=== PATIENT | male | born 1945 | race Caucasian/White ===

== ENCOUNTER 2025-02-05 04:37 | Inpatient (IN) | payer OTHER, SELFPAY ==
[2025-02-04 18:08] VITALS: BP 142/116
[2025-02-04 18:32] LABS: Hematocrit 24.1 % (39.0-52.0); Hemoglobin 8.1 g/dL (13.0-18.0); Mean Corp Hgb Conc. 33.6 g/dL (33.0-37.0); Mean Corpuscular Volume 80.9 fL (80.0-94.0); Nucleated Red Blood Cells % 0 % (-); Platelet Count 198 10^3/uL (130-400); Red Cell Dist. Width 19.1 % (11.5-14.5)
[2025-02-04 18:55] LABS: ALT (SGPT) 14 U/L (0-50); AST (SGOT) 21 U/L (17-59); Albumin 2.8 g/dl (3.5-5.0); Alkaline Phosphatase 171 U/L (38-126); Blood Urea Nitrogen 68 mg/dl (9-20); Calcium 7.8 mg/dl (8.4-10.2); Carbon Dioxide 23 mmol/L (22-30); Chloride 109 mmol/L (98-107); Glucose 77 mg/dl (70-99); Potassium 5.8 mmol/L (3.5-5.1); Sodium 137 mmol/L (135-145); Total Protein 5.4 g/dl (6.3-8.2); eGFR 29.36
--- NOTE | 2025-02-04 22:04 | ED.GENMED ---
History of Present Illness
General
Chief Complaint: Abnormal Lab Value
Source: patient
Time Seen by Provider: 02/04/25 21:22
History of Present Illness
History of Present Illness:
79-year-old gentleman presents to the emergency room for evaluation of abnormal labs obtained as an outpatient. 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 It was
revised at some point with a total knee replacement. The surgeries were done at [facility]. He had a prolonged hospitalization with multiple antibiotics and was ultimately discharged to a care home facility for rehab. While at the
care home recent facility he developed 'sepsis' and was admitted to [facility] recently. The source of the 'sepsis' was perhaps urine though his is on ultrasound sure that. Patient is currently receiving IV Levaquin. Patient had
surveillance labs obtained today which showed a low hemoglobin. This evidently dropped significantly over the past week. His renal function also worsened over the past week. Patient feels weak but otherwise no specific complaints.
Past History
Past History
ED Past Medical History: HTN and Hypercholesterolemia
ED Past Surgical History: Appendectomy, Orthopedic, Urological and Other (Hernia surgery, cataracts)
Social History
Tobacco: Non-smoker
Phy Exam
Physical Exam
Physical Exam:
General: Awake, Alert, Oriented X3. No acute distress.
Vitals: unremarkable
Head: Atraumatic
Eyes: Pupils equal, EOMI
Throat: Airway intact, no exudates, dry mucosa
Neck: Trachea midline
Lungs: Clear and equal b/l
Heart: Regular rate, no murmurs
Abd: Soft, Nontender, No pulsatile mass
Neuro: Nonfocal
Skin: Warm, dry, no rash
Extremities: pulses equal b/l, wound noted over right patella which is a chronic wound
Course
Orders/Labs/Results
Orders:
Orders
02/04/25 18:15
Type And Crossmatch [Type+Screen] Urgent
Complete Blood Count/With Diff Urgent
Comprehensive Metabolic Panel Urgent
02/04/25 18:33
ABO2 Urgent
BBK Wristband Number:
Associate notified that ABO2 has been ordered: [id number]
Date: 02/04/25
Time: 18:34
Molecular Biologist ID: [id number]
02/04/25 22:00
0.9% Sodium Chloride 1000 ml [Nss] 1,000 ml IV 150 mls/hr
02/04/25 22:04
Electrocardiogram (*1) Urgent
Reason for Study: QTc Monitoring
EKG- Treatment ONCE
Sodium Zirconium Cyclosilicate [Lokelma] 10 gram PO NOW STA
02/04/25 22:49
Admit/Transfer Patient As Directed
Co-Sign Provider:
Level of Care: Observation services
Assign to:: Medical/Surgical
Physician / Group: Jose
Diagnosis: MERI
02/04/25 22:50
Code Status As Directed
Resuscitation Status: Full Code
PRN Pain Medication Management As Directed
May give lesser potent ordered pain med per pt: Yes
preference::
Protocol:: Medication orders for pain may be administered in a
manner that supports deferring to patient preference
when the pt is:
- Requesting an ordered lesser potent pain medication.
Least to most potent pain medications are defined
as: acetaminophen < NSAID < tramadol < opioids
(morphine, oxycodone, hydromorphone).
- Requesting a lesser dose of the same medication IF
ORDERED.
- Requesting a less intrusive route of administration
if both routes are prescribed by the provider (PO <
IV).
02/04/25 23:47
0.9% Sodium Chloride 1000 ml [Nss] 1,000 ml IV BOLUS
02/04/25 23:48
Rolo Hugger As Directed
Patient's goal temperature:: 97 F
Additional Instructions:: Temperature and skin assessment per unit protocol
02/05/25 08:00
0.9% Sodium Chloride [Nss (Preservative Free)] 10 ml IV DAILY
Pantoprazole [Protonix IV] 40 mg IV DAILY
Abnormal Lab Results
02/04/25
18:15
RBC 2.98 L 10^6/uL
(4.70-6.10)
Hgb 8.1 L g/dL
(13.0-18.0)
Hct 24.1 L %
(39.0-52.0)
RDW 19.1 H %
(11.5-14.5)
MPV 11.5 H fL
(7.4-10.4)
Abs Immat Gran (auto) 0.1 H 10^3/uL
(0-0.05)
Absolute Neuts (auto) 6.6 H 10^3/uL
(1.4-6.5)
Absolute Monos (auto) 0.9 H 10^3/uL
(0.1-0.6)
Lymphocytes % 20.4 L %
(20.5-51.1)
Potassium 5.8 H mmol/L
(3.5-5.1)
Chloride 109 H mmol/L
(98-107)
BUN 68 H mg/dl
(9-20)
Creatinine 2.2 H mg/dL
(0.7-1.3)
Calcium 7.8 L mg/dl
(8.4-10.2)
Alkaline Phosphatase 171 H U/L
(38-126)
Total Protein 5.4 L g/dl
(6.3-8.2)
Albumin 2.8 L g/dl
(3.5-5.0)
Crossmatch IS Only See Detail
02/04/25 18:15
02/04/25 18:15
Vital Signs
Initial and Last Documented VS:
Initial Vital Signs
Temp Pulse Resp BP Pulse Ox
97.3 F 66 18 142/116 100
02/04/25 18:08 02/04/25 18:08 02/04/25 18:08 02/04/25 18:08 02/04/25 18:08
Last Documented Vital Signs
Temp Pulse Resp BP Pulse Ox
93.5 F L 54 13 99/55 97
02/05/25 00:44 02/05/25 01:30 02/05/25 01:30 02/05/25 01:00 02/05/25 01:30
MDM/Problems Addressed
Differential Diagnosis Includes:
Upper GI bleed, anemia chronic disease, dehydration
MDM/Problems Addressed:
Patient presents with primarily decrease in hemoglobin as an outpatient. His hemoglobin measured here was quite as low as what it was as an outpatient. However I also noted that his BUN and creatinine is more elevated than baseline. This could
reflect an upper GI bleed causing but the lower hemoglobin and an elevated BUN. Also could represent dehydration which may increase his hemoglobin. Patient's anemia could be related to his prolonged illness with joint infection, chronic
antibiotics etc. He may just have bone marrow suppression. I think the best course of action is to hospitalize the patient for IV hydration. Will see if his BUN/creatinine and potassium improves. His hemoglobin has to be trended to see if he
drifts down and also he can be observed to see if he develops any melena. Dose of Protonix given in case he does not fact have an upper GI bleed.
*Pulse Oximetry
SaO2: 100
Oxygen Mode of Delivery: Room air
Patient hypoxic: no
*EKG
Interpreted by ED Provider?: Yes
Interpretation: abnormal
Heart Rate: 57
Rate: bradycardiac
Rhythm: sinus and PVC's
Fisher: normal axis
Interval: normal interval
QRS Pattern: normal QRS
Ischemia: no ischemia
*Various Exceptionalities Teacher Interpretation
Rate: bradycardiac
Interpretation: abnormal
Rhythm: sinus and PVC's
*Critical Care Note
Total Time (30-74mins, 75-104mins- exclusive of procedures): Not Applicable
ED Attending Note
-
Portions of this chart may have been created with voice recognition software.� Occasional wrong word or��sound alike� substitutions may have occurred due to the inherent limitations of voice recognition software.
Discharge Plan
Departure
Patient Disposition: Admit
Date of Disposition: 02/04/25
Time of Disposition: 22:04
Admit to: Med/Surg
Presentation/result/management discussed w/ accepting MD/DO: Hospitalist
Condition: Fair
Discharge Problem:
ARF (acute renal failure), Anemia, Acute hyperkalemia
Interventions
Interventions:
*Risk Screen - Suicide Last Done: 02/04/25 18:08
*General Assessment Last Done: 02/04/25 22:30
[2025-02-04] MEDS: NSS 1000 IV (22:08)
[2025-02-04] MEDS: LOKELMA 10 GRAM PO (22:08)
--- NOTE | 2025-02-04 22:17 | HPS.HSE ---
Family Physician
-
Family Physician: Blair Pinto, DO
Chief Complaint
-
Anemia
History of Present Illness
This is a 79-year-old male was sent to the emergency department from [facility] [place] facility for hemoglobin of 7.2.
[facility] records indicate that the patient had a fall that was witnessed this morning. He did not strike his head. There was no loss of consciousness. They checked his hemoglobin and it was 7.1 so was sent to the emergency department. His
prior hemoglobin on 02/02 was 7.5 and prior to that it was 8.7 on 725. Patient himself has not seen any melena. He denies any hematochezia. He denies any vomiting. He does have a open right knee wound for which he is on chronic suppressive
antibiotic but he denies any significant oozing or drainage from the site. He has not had any fevers or chills. Denies any medical condition changes. 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
He has been in and out of hospitals over the past few month due to infection of right knee prosthesis with revision and prolonged iv abx ([facility]) and recent admission to [place] for 'sepsis' not sure of source but thought might be
urine. He is not on any anticoagulation
In the emergency department today blood pressure was 1 4100 with a pulse rate of 66 and was satting 90% on room air. He was afebrile with a temp of nine 7.3. His hemoglobin was 8.1 with MCV of 90 with a normal plate count of 198. White count was
9.7. Was found to have a potassium of 5.8. Electrolytes otherwise normal. BUN 66 with a creatinine of 2.2 which is up from his baseline of 5591.6. LFTs were unremarkable with low albumin of 2.8. ECG with sinus bradycardia at 57 with occasional
PVC.
Medical History
Past Medical History
Past Medical History: Reports Renal Failure and Other
Additional Past Medical History:
Periprosthetic fracture around internal prosthetic right hip joint, right artificial knee joint, dysphagia, ambulatory dysfunction, hypertension, hyperlipidemia, CAD without angina, CKD
Past Surgical History: Reports Orthopedic (Right knee prostheses status post revision)
Social History
Tobacco: Non-smoker
Alcohol: None
Drug: None
Personal:
Living: [facility]
Family History
Family History: Not pertinent
Allergies / Home Medications
Allergies reflects when Allergies were last updated in [facility].
Home Medications with original date entered in [facility]
Allergy/Medication List:
Allergies
Allergy/AdvReac Type Severity Reaction Status Date / Time
No Known Allergies Allergy Verified 02/04/25 18:08
Home Medications
aspirin 81 mg tablet,delayed release 81 mg PO DAILY 01/19/18
lisinopril 10 mg tablet (Prinivil) 10 mg PO DAILY 01/19/18
multivitamin 1 ea PO DAILY 01/19/18
Levofloxacin 750mg tablet, 750 mg tablet once daily
Metoprolol succinate 25 mg tablet, 25 mg tablet oral daily
Minocycline 100 mg capsule, 100 mg p.o. daily
Mirtazapine 7.5 mg tablet, 7.5 mg oral daily
Omeprazole 20 mg tablet, 20 mg oral daily
Simvastatin 20 mg tablet, 20 mg oral at bedtime
Review of Systems
-
Constitutional: Reports No Symptoms
EENT: Reports No Symptoms
Respiratory: Reports No Symptoms
Cardiac: Reports No Symptoms
Abdomen/GI: Reports No Symptoms
: Reports No Symptoms
Musculoskeletal: Reports No Symptoms
Skin: Reports No Symptoms
Neurological: Reports No Symptoms
Endocrine: Reports No Symptoms
Hematologic/Lymphatic: Reports No Symptoms
Psych: Reports No Symptoms
Physical Exam
Vital Signs
Vital Signs
Temp Pulse Resp BP Pulse Ox
97.3 F 66 18 142/116 100
02/04/25 18:08 02/04/25 18:08 08/01/25 18:08 02/04/25 18:08 02/04/25 22:04
Physical Exam
General: Appears Chronically Ill
HEENT: NormoCephalic, Moist mucous membranes and Atraumatic
Respiratory: Clear
Cardiac: S1/S2 and Regular Rhythm; No Murmur or Rub
GI: Soft, Non Tender, Non Distended and Normal Bowel Sounds; No Organomegaly
Rectal: Brown, Hem Negative and Deferred by Provider
Musculoskeletal: No Clubbing, No Cyanosis, No Edema and Other (Right knee open wound without drainage. )
Skin: No Rash
Neuro: Nonfocal/grossly intact
Laboratory Results
-
02/04/25 18:15
02/04/25 18:15
Laboratory Results
Total Bilirubin 0.2 mg/dl (0.2-1.3) 02/04/25 18:15
AST 21 U/L (17-59) 02/04/25 18:15
ALT 14 U/L (0-50) 02/04/25 18:15
Alkaline Phosphatase 171 U/L (38-126) H 02/04/25 18:15
Data Reviewed
-
Medical Tests (Nuc Med, Echo, EKG etc): Image Personally Visualized and interpreted
Lab Data: Labs Reviewed by me
Impression/Plan
-
IMPRESSION:
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
of hospitalization for the last few months for chronic infection and sepsis thought to be secondary to cellulitis and wound infection who now presents to the emergency department from nursing facility with a hemoglobin of 7.2. Remitted with
hemoglobin in the emergency department was 8.1. He has heme-negative brown stools on rectal exam. He stated that his stool sample was collected this morning at the nursing facility but unknown testing. Patient is only on 81 mg aspirin and not on
any thinners. He is hemodynamically stable.
PLAN:
Anemia -no current evidence of GI bleed. No obvious blood loss from the wound. Hemodynamically stable and afebrile.
-Admit to MedSurg
-Hemoccult on stools
-Typed and screened and consented
-H&H every 8
-Will transfuse for hemoglobin less than 7.5
-Normal MCV, check iron panel
-PPI daily for now
- orthostatics
MERI -BUN/creatinine greater than 20 with a creatinine of 2.2 and a BUN of 66. Baseline seems to be creatinine of around 1.6. Potassium is 5.8. He has chronic hyperkalemia.
-Suspect prerenal but cannot rule out obstruction
-Started on normal saline 1 L
-Bladder scan for postvoid residual
-Hold lisinopril
-Lokelma x 1, low K diet
-Repeat potassium in the morning
Chronic infection
-Continue minocycline
- Continue levofloxacin
Wound care consult
DVT prophylaxis�heparin subcu
CODE STATUS�full code
[2025-02-04 22:29] VITALS: BP 148/86
[2025-02-04 23:18] VITALS: BP 79/51
[2025-02-05] VITALS (35 sets, daily range): BP systolic 82–158; BP diastolic 31–111; BMI 25.8; BMI 23.5
--- NOTE | 2025-02-05 00:11 | W.PN.UPDATE ---
Addendum entered and electronically signed by HEATH Mcclellan 02/05/25 06:42:
Patient continue to be hypotensive, Discussed with the admitting physician and the plan to:
-Start vancomycin, cefepime, d/v Levaquin and minocycline.
-ID consult.
-Give one time midodrine and plan to start pressor if no improvement in the bp�
Original Note:
Update Note
Progress Note Update
Patient is hypotensive with bp 79/51, hr 60 temp 91, RR 20, spo2 97%. Asymptomatic.
-CBC ordered. One time order of NSS 1000cc bolus and one unit of blood ordered as discussed with the admitting physician.
-Rolo hugger
-IMU level.
[2025-02-05] MEDS: NSS 1000 IV ×5 (00:30→17:15)
[2025-02-05 00:57] LABS: Hematocrit 24.5 % (39.0-52.0); Hemoglobin 7.9 g/dL (13.0-18.0); Mean Corp Hgb Conc. 32.2 g/dL (33.0-37.0); Mean Corpuscular Volume 81.9 fL (80.0-94.0); Platelet Count 172 10^3/uL (130-400); Red Cell Dist. Width 19.1 % (11.5-14.5)
[2025-02-05] MEDS: VANCOCIN 540 MG IV (05:42)
[2025-02-05] MEDS: MAXIPIME 1000 MG IV ×2 (05:48→17:06)
[2025-02-05] MEDS: STERILE WATER FOR INJECTION 10 ML IV ×2 (05:48→17:07)
[2025-02-05] MEDS: HEPARIN 5000 UNITS SC ×2 (06:12→21:00)
[2025-02-05] MEDS: LEVOPHED 250 IV (06:14)
--- NOTE | 2025-02-05 06:19 | PTCARENOTE ---
Pt received as admission to IMU with MERI. AAOX3. [place]. No hearing aides. Pt arrived to floor with unit of PRBCs infusing through blood warmer. Pt's only complaint is 5/10 pain to right knee chronic surgical site that pt states 'I banged it up against
something earlier.' BP 99/51, rectal temp 96.3, HR 70's than down to 50's SB. POX RA 99%. Pt placed back on josselyn hugger goal of 97. Once unit of PRBC finished infusing BP 88/36 MAP 42. Aster JOE TT'd and updated. Levophed gtt ordered and currently
infusing at 4mcq/min. IVF's initiated at 150ml/hr. Vanco bolus infusing. Pt has 2 large bore INT's. Pt urinated using urinal in bed for 150mls clear yellow urine. AM labs obtained and sent. Wounds documented. Rest of assessment as documented.
Oriented to room and surroundings. Call melton remains within reach. Will continue to monitor.
--- NOTE | 2025-02-05 06:30 | TRANSFER ---
Pt HR down to 40. In ventricular bigeminy with 1st degree block and prolonged QRS. Skin ashen. Pt arousable but weak. No complaints. Levophed gtt up to 8mcq. Aster JOE TT'd and updated. Stat order for 1L IVFs infusing wide open. ICU transfer order
entered. Verbal report given to Carrie PUENTE from ICU. Pt and all personal belongings transferred to room 3357.
[2025-02-05 06:43] LABS: Blood Urea Nitrogen 64 mg/dl (9-20); Calcium 7.6 mg/dl (8.4-10.2); Carbon Dioxide 20 mmol/L (22-30); Chloride 114 mmol/L (98-107); Estimated Creatinine Clearance 34 ml/min; Glucose 71 mg/dl (70-99); Iron 68 ug/dl (49-181); Potassium 5.3 mmol/L (3.5-5.1); Sodium 138 mmol/L (135-145); eGFR 37.35
[2025-02-05 06:51] LABS: Hematocrit 23.5 % (39.0-52.0); Hemoglobin 8.1 g/dL (13.0-18.0); Magnesium 1.7 mg/dl (1.6-2.3); Mean Corp Hgb Conc. 34.5 g/dL (33.0-37.0); Mean Corpuscular Volume 79.9 fL (80.0-94.0); Platelet Count 159 10^3/uL (130-400); Red Cell Dist. Width 18.4 % (11.5-14.5); Reticulocyte Count 0.7 % (0.4-2.8)
[2025-02-05 06:52] LABS: Total Iron Binding Capacity 145 ug/dl (261-462)
--- NOTE | 2025-02-05 07:27 | PTCARENOTE ---
Transfer from IMU to ICU
0700 Patient transfer to from IMU to ICU secondary to Hypotension while on Norepinephrine at 8 mcg. VS: 97.3 (rectal)-BP via left upper arm 122/37 MAP 60 ; SB with bigeminit with prolong KS 51; RR 12; 99RA
on Assessment pt - AAO x 3 HOB glasses.
SB 51-64
lungs course through on RA
Abdomen soft non tender to sigh of bleed
voiding in a urinal
call melton within reach
--- NOTE | 2025-02-05 07:34 | PHA.VAN.IN ---
Assessment
- Assessment
Renal Function: Unknown baseline
Maximum Temperature: 96.8
Minimum Temperature: 91.9
Concomitant Antimicrobials: Cefepime
Plan
- Plan
Initial / Loading Dose: 2000mg 02/05
Maintenance Regimen: Dose by level
Monitoring: Random with morning labs on 02/06 at 0600
Pharmacokinetics Vancomycin I
- -
Patient Age: 79
Patient Sex: Male
Vancomycin Day #: 1
Indication: Bacteremia
Requesting Provider: Dr. Garcia, Dr. Gray
Pertinent Antimicrobial Allergies:
none
Height / Weight:
Height 5 ft 11 in
Actual Weight 76.5 kg
- Vital Signs / Lab Results
Temp Pulse Resp BP Pulse Ox
96.8 F L 57 11 88/36 96
02/05/25 06:00 02/05/25 05:33 02/05/25 05:33 02/05/25 05:33 02/05/25 05:30
Lab Results - Hematology
02/04/25 02/05/25 02/05/25
18:15 00:27 05:58
WBC 9.9 9.4 7.4
Lab Results - Chemistry
02/04/25 02/05/25
18:15 05:58
BUN 68 H 64 H
Creatinine 2.2 H 1.8 H
Estimated Creat Clear 34
Albumin 2.8 L
[2025-02-05 07:49] LABS: Folate 8.0 ng/ml (2.76-20); Vitamin B12 407 pg/ml (239-931)
--- NOTE | 2025-02-05 08:39 | CON.INTV ---
Consultation
Consultation Request
Date/Time Consultation Requested: 02/05/25
Date/Time Consultation Performed: 02/05/25
Performing Provider: Val
Reason for Consultation: Hypotension
Medical History
-
History of Present Illness:
Patient is an 79-year-old male with previous history of hypertension, CAD, chronic kidney disease presenting from long-term facility for anemia. Hemoglobin was reportedly 7.2. Per records, patient had a mechanical fall that was witnessed the
day prior to admission, no head injury or loss of consciousness. He was sent in due to abnormal labs. He has had repeated hospitalizations over the past few months due to infected right knee prosthesis. He was notably hypotensive on admission,
systolic blood pressure in the 70s. He is currently placed on pressors and admitted to ICU for further management.
Allergies / Home Medications
Allergies
Allergy/AdvReac Type Severity Reaction Status Date / Time
No Known Allergies Allergy Verified 02/04/25 18:08
Home Medications
�Medication �Instructions �Recorded �Confirmed �Last Taken �Type
aspirin 81 mg tablet,delayed 81 mg PO DAILY 01/19/18 01/19/18 Unknown History
release
docosahexaenoic acid (dha)-epa 120 1 cap PO DAILY 01/19/18 01/19/18 Unknown History
mg-180 mg capsule
lisinopril 20 mg tablet (Prinivil) 20 mg PO DAILY 01/19/18 01/19/18 Unknown History
multivitamin 1 ea PO DAILY 01/19/18 01/19/18 Unknown History
simvastatin 20 mg tablet 20 mg PO DAILY 01/19/18 01/19/18 Unknown History
cephalexin 500 mg capsule 500 mg PO BID #14 caps 04/06/20 Unknown Rx
Review of Systems
Vitals / Labs / Diagnostic Testing
Vital Signs
Temp Pulse Resp BP Pulse Ox
97.2 F 57 11 88/36 96
02/05/25 08:05 02/05/25 05:33 02/05/25 05:33 02/05/25 05:33 02/05/25 05:30
Lab Data
02/05/25 05:58
Diagnostic Testing:
Assessment
-
Patient is an 79-year-old male with previous history of hypertension, CAD, chronic kidney disease presenting from long-term facility for anemia. Hemoglobin was reportedly 7.2. Per records, patient had a mechanical fall that was witnessed the
day prior to admission, no head injury or loss of consciousness. He was sent in due to abnormal labs. He has had repeated hospitalizations over the past few months due to infected right knee prosthesis. He was notably hypotensive on admission,
systolic blood pressure in the 70s. He is currently placed on pressors and admitted to ICU for further management.
Suspected septic shock
Prior recent history of infected right knee prosthesis
Anemia, unknown etiology
Hyperkalemia
MERI, creatinine 2.2 (unknown baseline)
Hypothermia
Conditions present prior to admission
Hypertension
Dysphagia
Ambulatory dysfunction
Hyperlipidemia
CAD
Chronic kidney disease
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
Right artificial knee joint
Right knee prosthesis status post revision
Plan
No current signs of metabolic encephalopathy or MS changes/following commands
Fall risk noted, amb dysf baseline, seen in ER in past for falls
Denies pain at this time.
Pain/sedation: PRN
RASS goals: 0
Hemodynamically unstable, requiring pressors.
Requiring pressors: Levo, can add vaso if needed
Cardiac history reviewed--HTN, CAD--no prior records of any testing
Obtain new ECHO
Hold home meds
Monitor on telemetry
Oxygen needs: stable on RA
Prior history of lung disease: none
Supplemental O2 as indicated to maintain sats > 89%
Obtain baseline CXR, no prior PFTs
Diet advancement
Supervisor Coin Machine recommendations
Aspiration precautions, HOB > 30 degrees
Speech therapy eval can be considered if at elevated risk
GI prophylaxis if indicated for mechanical ventilation >48 hours, prior history of GERD, stress ulcer formation in the critically ill
MERI present, unknown baseline-could be ATN, dehydration given ^Na
History of CKD
Void trials
Follow urine output, critical I/Os
Replete electrolytes as needed
IVFs, repeat labs
Fever and increased WBC on presentation, suspect underlying infection
Started on empiric antibiotics
UA not indicating infection
History of recurrent knee infections
Cultures sent/pending
Obtain chest/knee imaging
Follow fever trend, WBC count
Hb low, unknown HB baseline
Iron normal
Consider GI vs Heme consult for cause -- no evidence of GIB
Can consider CT AP as well
DVT prophylaxis as assessed based on risk, including mechanical SCDs
Can transfuse if indicated for Hb <7, plt < 10
No prior h/o diabetes or thyroid disease
Monitor accuchecks PRN/SS coverage if needed
We will follow
Diagnostic Data
Chest X-Ray:
Toe XR 04/06/20- Nondisplaced transverse fracture of the proximal metaphysis of the distal phalanx of the great toe without intra-articular extension.
Shoulder 01/19/18-Reduction of previously seen left shoulder dislocation.
CT Scan:
Echo:
PFT's:
Reports and relevant images were personally reviewed.
Critical Care time 61 mins -- The patient is admitted for acute critical illness for the treatment of vital organ failure and/or prevention of further life-threatening conditions. Total care includes time spent in review of history, physical exam,
medications, hemodynamic/ventilator parameters, laboratory data, imaging and discussion with house staff, pharmacy, respiratory therapy, scraper operator, and nursing.
[2025-02-05 09:05] LABS: Urine Character Clear (Clear)
--- NOTE | 2025-02-05 09:31 | W.PN.HOSP.TC ---
Today's Communication/Plan
-
see outlined plan
Assessment / Plan
Assessment / Plan
Assessment:
Shock - unclear underlying etiology, possibly evolving sepsis given Hypothermia although not meeting sepsis criteria completely (normal WBC, no tachycardia or tachypnea)
- Rolo-Hugger for hypothermia
- received IVF in ER; continue here
- continue Levophed - wean as able
- ICU service consulted
- check UA, Bcx
- check CXR
- empiric Vanco/Cefepime, day 1
- ID to evaluate
Anemia, suspected chronic
- no records to compare
- no evidence of low B12, folate, or iron deficiency. check hemolysis labs
- occult blood negative; continue to test it
- s/p 1 unit PRBC: Hb is 8.1 most recently
MERI on suspected CKD
Acute hyperkalemia
- unknown if patient has CKD - no records to compare
- continue IVF
- s/p Lokelma
- hold FLORINDA
- 2 gram K diet
- repeat BMP 2pm
- BS/SC protocol
HX of dysphagia
Essential HTN
Hx of CAD
HLD
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
Open R knee wound
- outpatient surgeon is Dr. Wagner
- patient is on chronic Minocycline/Levaquin for suppression
- obtain Knee Xray
- Wound care and Ortho consults
DVT ppx: SC Heparin
Code: Full
Total Critical Care Time 41 minutes. I was immediately available to the patient and staff. I personally examined, reviewed labs, diagnostic images/reports, interpretations, treatment plans, discussed patient care with other providers and family
or caregivers (if patient is unable to make decisions), entered orders as appropriate and documented the medical record.
Anticipated Discharge: > 48 hours
Subjective/Interval History
-
Date of Service: February 05, 2025
patient transferred from IMU to ICU for higher pressor requirements (levophed @ 8), currently Levophed @ 2
denies any pain, SOB/chest pain, no fever/chills. Reports chronic knee discomfort
Objective Data
-
Labs:
Laboratory Results
02/05/25 02/05/25 02/05/25
00:27 05:58 08:09
WBC 9.4 7.4
Hgb 7.9 L 8.1 L
Hct 24.5 L 23.5 L
Plt Count 172 159
Sodium 138
Potassium 5.3 H
Chloride 114 H
Carbon Dioxide 20 L
BUN 64 H
Creatinine 1.8 H
Glucose 71
Calcium 7.6 L Cancelled
02/05/25 02/05/25
14:00 22:00
WBC
Hgb Pending Pending
Hct Pending Pending
Plt Count
Sodium
Potassium
Chloride
Carbon Dioxide
BUN
Creatinine
Glucose
Calcium
Vital Signs:
Vital Signs
Temp Pulse Resp BP Pulse Ox
97.2 F 57 11 88/36 96
02/05/25 08:05 02/05/25 05:33 02/05/25 05:33 02/05/25 05:33 02/05/25 05:30
I&O
02/04/25 02/05/25 02/06/25
06:59 06:59 06:59
Intake Total 250 / 250
Output Total 200 / 200
Balance 50 / 50
Physical Exam
-
General: No Apparent Distress
HEENT: Normocephalic and Atraumatic
Respiratory: Negative Wheezes
Cardiac: Regular Rhythm and S1/S2
GI: Soft
Genito-urinary: No Costovertebral Tender
Musculoskeletal: Other (R knee open wound)
Neuro: AO x 3
Psych: Calm
Data Reviewed
-
Critical Care Time (in minutes): 41
Labs: Labs Reviewed by me
[2025-02-05] MEDS: HEPARIN SC (09:50)
[2025-02-05] MEDS: NSS (PRESERVATIVE FREE) 10 ML IV (11:11)
[2025-02-05] MEDS: PROTONIX IV 40 MG IV (11:11)
[2025-02-05] MEDS: LIPITOR 10 MG PO (11:11)
--- NOTE | 2025-02-05 11:47 | PTOTSP ---
Speech Therapy Evaluation:
Pt presents with functional oropharyngeal swallow at bedside. Noted hx of dysphagia in chart, however pt and family member denied this. Per chart, WBC WNL, pt on room air, CXR without acute cardiopulmonary process, and pt without EDITOR MAGAZINE hx at
(unable to locate records from outside facility).
Recommend:
1. Cont. Regular solids and thin liquids
2. Meds as tolerated
3. General aspiration precautions
4. EDITOR [employer]INE to s/o - please reconsult if indicated
--- NOTE | 2025-02-05 12:04 | CON.ID ---
Consultation
-
Date/Time Consultation Requested: February 05, 2025 0440
Date/Time Consultation Performed: February 05, 2025 1200
Requesting Provider: Dr. Emily Cheng
Performing Provider: Dr. Jeimy Gray
Reason for Consultation: Sepsis on chronic antibiotics
Chief Complaint / Past History
Chief Complaint
Low hemoglobin
History of Present Illness
Most of the history obtained from patient's daughter over the phone. Mr. Pack is a 79-year-old male with hypertension, CAD, CKD, recent septic partial R TKA who presented from [facility] rehab due to low hemoglobin of 7.1. In August 30, 2024
patient underwent partial right knee replacement at [facility]. However he developed infection of the prosthesis and 6 weeks later he underwent washout with cultures obtained. Per daughter, culture grew MSSA, Pseudomonas, and
Klebsiella. Infectious disease had [facility] placed him on IV antibiotic for 6 weeks. However patient failed conservative management. He then underwent two-stage right TKA revision with a new prosthesis placed end of November. He was on IV antibiotic
and then transitioned to minocycline plus levofloxacin till mid February. He has a chronic wound over the right knee since knee revision. Per daughter the wound is slowly improving. Approximately 2 weeks ago, patient was admitted to [facility] for 'sepsis'. Blood cultures were negative. Patient was then discharged to [facility] rehab since he was deconditioned, has lost 30 pounds since August. Patient was doing well at rehab making good progress. His appetite was
improving. Routine blood work noted hemoglobin of 7.1 and therefore patient was sent to the ER yesterday. Hemoccult stool negative. Chest x-ray negative. Last night patient was hypothermic temperature 91.9, blood pressure was low 79/51. He was
transferred to the ICU on Levophed. Patient denies fevers or chills. No cough or shortness of breath. No chest pain. No nausea or vomiting. No abdominal pain or diarrhea. No urine symptoms.
Past History
Additional Past Medical History:
HTN
HLD
CAD
Depression
Right knee partial replacement 08/30/24 ([facility])
Septic R partial TKA s/p washout 09/28, cx MSSA, Pseudomonas, Klebsiella failed conservative management IV abx
(?2 stage) revision to full R TKA end of 11/2024, currently on minocycline and levofloxacin till mid-February 2025 (managed by Wander GIMENEZ)
Chronic post-op right knee wound
Allergy History:
No Known Allergies Allergy (Verified 02/04/25 18:08)
Medications Reviewed: Yes
Current Antibiotics:
Vancomycin
Cefepime
Social History
Tobacco: Non-Smoker
Alcohol: None
Drug: None
Personal:
Living: Jail ([facility])
Family History
Family History: Not Pertinent
Review of Systems
Review of Systems
General: Negative Fever or Chills
HEENT: Negative Sinus Problems or Headache
Cardiovascular: Negative Chest Pain or Dyspnea
Respiratory: Negative Dyspnea or Cough
Gasteroenterology: Negative Nausea, Vomiting or Diarrhea
Genital / Urological: Negative Dysuria or Flank Pain
Endocrine: Weakness and Fatigue
All systems: All other systems were reviewed and were negative
Vital Signs
Temp Pulse Resp BP Pulse Ox
97.3 F 57 11 88/36 96
02/05/25 11:50 02/05/25 05:33 02/05/25 05:33 02/05/25 05:33 02/05/25 05:30
Physical Exam
Physical Exam
Constitutional: No Acute Distress and Comfortable
Eyes: No Conjunctival Hemorrhage and Sclera Anicteric
Cardiovascular: Regular Rate and Irregular Rate
Pulmonary: Clear
Gastrointestinal: Soft, Non Tender, Non Distended and Normal Bowel Sounds
Genito-Urinary: Negative CVA Tenderness
Extremities: Negative Edema
Musculoskeletal: Other (Right knee ROM intact); Negative Spinal Tenderness
Wound: Other (Right knee large wound with pink granulation tissue, no surrounding erythema)
Neurological: AO x 3
Lab / Diagnostic Study Results
Abs Immat Gran (auto) 0.1 10^3/uL (0-0.05) H 02/04/25 18:15
Absolute Neuts (auto) 6.6 10^3/uL (1.4-6.5) H 02/04/25 18:15
Absolute Lymphs (auto) 2.0 10^3/uL (1.2-3.4) 02/04/25 18:15
Absolute Monos (auto) 0.9 10^3/uL (0.1-0.6) H 02/04/25 18:15
Absolute Basos (auto) 0.0 10^3/uL (0-0.2) 02/04/25 18:15
Immature Gran % 0.5 % (0-0.5) 02/04/25 18:15
Neutrophils % 66.7 % (42.2-75.2) 02/04/25 18:15
Lymphocytes % 20.4 % (20.5-51.1) L 02/04/25 18:15
Monocytes % 8.9 % (1.7-9.3) 02/04/25 18:15
Eosinophils % 3.3 % (0-6) 02/04/25 18:15
Basophils % 0.2 % (0-2) 02/04/25 18:15
Microbiology Results
Micro:
02/05/25 05:58 MRSA Screen - Pending
Nose
02/05/25 03:52 Blood Culture - Pending
Blood/Venous
02/05/25 03:52 Blood Culture - Pending
Blood/Venous
02/05/25 CXR: No acute cardiopulmonary process.
02/05/25 R knee XRAY: No radiographic evidence for complication of the right total knee arthroplasty.
Assessment / Plan
# Shock - unclear source at this time
# Hypothermia - due to hypotension
# MERI
# Acute on chronic anemia
# Recent early septic R partial TKA (MSSA, Pseudomonas, Klebsiella)
s/p revision (?2 stage) to full TKA end of November 2024, on minoccyline and levofloxacin till mid-February 2025.
# Post-top chronic wound on right knee
- UA neg
-CXR neg
-blood cx's pending.
- Can continue empiric Vanco, cefepime pending cx data.
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
HTN
HLD
CAD
Depression
Right knee partial replacement 08/30/24 ([facility])
Septic R partial TKA s/p washout 09/28, cx MSSA, Pseudomonas, Klebsiella failed conservative management IV abx
(?2 stage) revision to full R TKA end of 11/2024, currently on minocycline and levofloxacin till mid-February 2025 (managed by Wander GIMENEZ)
Chronic post-op right knee wound
--- NOTE | 2025-02-05 12:58 | CM ---
Reviewed the chart notes and spoke with the patient at the bedside. IMM reviewed. Patient admitted for MERI. The patient was recently admitted to [facility] (01/26) from [facility]. The patient prior to hospitalization resided with his
spouse in a multi-level home with four steps to enter. The patient has rolling walker, cane, and a wheelchair. The patient reports no VN. Patient has also been to [facility] in the past. The patient confirmed his pharmacy of choice is [facility] [address] [place]. continues to be available to patient/family and is monitoring medical plan for needs at discharge.
Plan: Discharge plans will depend on the patient's progress.
[2025-02-05 14:49] LABS: Hematocrit 24.9 % (39.0-52.0); Hemoglobin 8.3 g/dL (13.0-18.0); Reticulocyte Count 0.6 % (0.4-2.8)
[2025-02-05 14:59] LABS: Blood Urea Nitrogen 60 mg/dl (9-20); Calcium 7.5 mg/dl (8.4-10.2); Carbon Dioxide 20 mmol/L (22-30); Chloride 114 mmol/L (98-107); Estimated Creatinine Clearance 34 ml/min; Glucose 70 mg/dl (70-99); LDH 216 U/L (120-246); Potassium 5.4 mmol/L (3.5-5.1); Sodium 136 mmol/L (135-145); eGFR 37.35
--- NOTE | 2025-02-05 15:28 | PTCARENOTE ---
Repeat Labs for 14:00: Improved to 8.3 from 8.1; K increased to 5.[address] Cheng aware.
[2025-02-05] MEDS: LOKELMA 10 GRAM PO (16:52)
--- NOTE | 2025-02-05 17:59 | PTCARENOTE ---
patient in bed . Levophed off since 11 am . VSS on RA
--- NOTE | 2025-02-05 20:23 | PTCARENOTE ---
Addendum entered by Doris Kelly RN 02/05/25 21:37:
Temp did not improve - rectal probe placed, josselyn olmos added.
Original Note:
Received pt resting in bed, AAOx3. OHOGAMIUT. HUMPHREY. Reports feeling generalized weakness. SB/SR on tele with PVCs. HR 50s-70s. BP 110s/80-90s. Trace LE edema. Temp 95.9 rectal - warm blankets placed, will reevaluate need for josselyn elviraer. On RA. spo2 100%.
Lungs diminished throughout. + bowel sounds, good appetite. 2g K diet. Voiding yellow urine in urinal. R knee dsg c/d/i. NS @ 100ml/hr infusing as ordered. Bathed with CHG. Call melton in reach
[2025-02-05] MEDS: REMERON 7.5 MG PO (21:02)
[2025-02-05 22:13] LABS: Hematocrit 23.1 % (39.0-52.0); Hemoglobin 7.7 g/dL (13.0-18.0)
[2025-02-05 22:20] LABS: INR 1.06; PT 14.1 Sec (11.4-14.6)
[2025-02-05 22:21] LABS: APTT 35.7 Sec (23.4-35.0)
[2025-02-05 22:27] LABS: Blood Urea Nitrogen 54 mg/dl (9-20); Calcium 7.3 mg/dl (8.4-10.2); Carbon Dioxide 19 mmol/L (22-30); Chloride 116 mmol/L (98-107); Estimated Creatinine Clearance 39 ml/min; Glucose 117 mg/dl (70-99); Potassium 4.8 mmol/L (3.5-5.1); Sodium 137 mmol/L (135-145); eGFR 43.02
[2025-02-06] VITALS (18 sets, daily range): BP systolic 92–155; BP diastolic 28–85; PULSE 68; O2SAT 100; BMI 24.6
[2025-02-06] MEDS: NSS 1000 IV (02:17)
[2025-02-06 04:08] LABS: Hematocrit 23.2 % (39.0-52.0); Hemoglobin 7.7 g/dL (13.0-18.0); Mean Corp Hgb Conc. 33.2 g/dL (33.0-37.0); Mean Corpuscular Volume 81.1 fL (80.0-94.0); Platelet Count 152 10^3/uL (130-400); Red Cell Dist. Width 18.7 % (11.5-14.5)
[2025-02-06 04:31] LABS: Blood Urea Nitrogen 53 mg/dl (9-20); Calcium 7.5 mg/dl (8.4-10.2); Carbon Dioxide 20 mmol/L (22-30); Chloride 117 mmol/L (98-107); Estimated Creatinine Clearance 39 ml/min; Glucose 105 mg/dl (70-99); Potassium 5.0 mmol/L (3.5-5.1); Sodium 138 mmol/L (135-145); eGFR 43.02
[2025-02-06] MEDS: MAXIPIME 1000 MG IV (05:48)
[2025-02-06] MEDS: STERILE WATER FOR INJECTION 10 ML IV (05:48)
--- NOTE | 2025-02-06 06:12 | PTCARENOTE ---
Pt. rested calmly overnight, without complaints. Rolo hugger off for a couple hours but now back on as temp dropped below 97 again.
--- NOTE | 2025-02-06 07:40 | W.PN.INTV ---
Today's Communication / Plan
Recommendations
Now off pressors, no new issues
Maintained on IV abx per ID, no plans for surgery per ortho
Consider transfer to [place] for knee intervention if needed
Otherwise, can transfer to floors--we will sign off upon transfer
Assessment
-
Patient is an 79-year-old male with previous history of hypertension, CAD, chronic kidney disease presenting from nursing home facility for anemia. Hemoglobin was reportedly 7.2. Per records, patient had a mechanical fall that was witnessed the
day prior to admission, no head injury or loss of consciousness. He was sent in due to abnormal labs. He has had repeated hospitalizations over the past few months due to infected right knee prosthesis. He was notably hypotensive on admission,
systolic blood pressure in the 70s. He is currently placed on pressors and admitted to ICU for further management.
Suspected septic shock suspect infected R knee prosthesis
Prior recent history of infected right knee prosthesis
Anemia, unknown etiology
Hyperkalemia
MERI, creatinine 2.2 (unknown baseline)
Hypothermia
Conditions present prior to admission
Hypertension
Dysphagia
Ambulatory dysfunction
Hyperlipidemia
CAD
Chronic kidney disease
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
Right artificial knee joint
Right knee prosthesis status post revision
Plan
No current signs of metabolic encephalopathy or MS changes/following commands
Fall risk noted, amb dysf baseline, seen in ER in past for falls
Denies pain at this time.
Pain/sedation: PRN
RASS goals: 0
Hemodynamically stable, weaned off pressors.
Cardiac history reviewed--HTN, CAD--no prior records of any testing
Obtain new ECHO--pending
Hold home meds
Monitor on telemetry
Oxygen needs: stable on RA
Prior history of lung disease: none
Supplemental O2 as indicated to maintain sats > 89%
Baseline CXR--normal, no prior PFTs
Diet advancement
Beer Cooler recommendations
Aspiration precautions, HOB > 30 degrees
Speech therapy eval can be considered if at elevated risk
GI prophylaxis if indicated for mechanical ventilation >48 hours, prior history of GERD, stress ulcer formation in the critically ill
MERI present, unknown baseline-could be ATN, dehydration given ^Na
History of CKD
Void trials
Follow urine output, critical I/Os
Replete electrolytes as needed
IVFs, repeat labs
Fever and increased WBC on presentation, suspect underlying infection--R knee pus noted
Suspect infected hardware, ortho and ID consult obtained
Started on empiric antibiotics
UA not indicating infection
History of recurrent knee infections
Cultures sent/pending
Obtain chest/knee imaging -- fluid in knee noted
Follow fever trend, WBC count
Hb low, unknown HB baseline
Iron normal
Consider GI vs Heme consult for cause -- no evidence of GIB
Can consider CT AP as well
DVT prophylaxis as assessed based on risk, including mechanical SCDs
Can transfuse if indicated for Hb <7, plt < 10
No prior h/o diabetes or thyroid disease
Monitor accuchecks PRN/SS coverage if needed
Transfer to floors, we will sign off upon transfer
Diagnostic Data
Chest X-Ray:
Toe XR 04/06/20- Nondisplaced transverse fracture of the proximal metaphysis of the distal phalanx of the great toe without intra-articular extension.
Shoulder 01/19/18-Reduction of previously seen left shoulder dislocation.
CT Scan:
Echo:
PFT's:
Reports and relevant images were personally reviewed.
Critical Care time 31 mins -- The patient is admitted for acute critical illness for the treatment of vital organ failure and/or prevention of further life-threatening conditions. Total care includes time spent in review of history, physical exam,
medications, hemodynamic/ventilator parameters, laboratory data, imaging and discussion with house staff, pharmacy, respiratory therapy, sketch liner, and nursing.
Subjective Dataa
Subjective Data
Date of Service:
Date of Service: February 06, 2025
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
Subjective:
No new events, confusion ongoing
Now off pressors
Objective Data
Data Reviewed
Vital Signs / I&O / Oxygen:
Vital Signs
Temp Pulse Resp BP Pulse Ox
96.5 F L 59 13 101/49 96
02/06/25 06:00 02/06/25 06:00 02/06/25 06:00 02/06/25 06:00 02/06/25 06:00
Intake and Output
02/05/25 02/06/25 02/07/25
06:59 06:59 06:59
Intake Total 250 / 250 2800 / 2800
Output Total 200 / 200 1700 / 1700
Balance 50 / 50 1100 / 1100
SaO2 96
Physical Exam
General: Comfortable and Other (NAD)
HEENT: Normocephalic, Anicteric and Moist Mucous Membranes
Cardiovascular: S1-S2 and Regular Rhythm
Respiratory: Clear and Non-Labored Respirations
GI: Soft, Non Distended and Non Tender
Neurology: Awake, No Motor Deficits and Other (confused)
Skin: Warm, Dry and Other (pus coming from knee site)
Labs/Micro/Reports
Lab Data
02/06/25 03:55
02/06/25 03:55
Laboratory Results
02/05/25
22:03
PT 14.1
INR 1.06
APTT 35.7 H
Microbiology
02/05/25 03:52 Blood/Venous Blood Culture - Preliminary
No Growth in 24 hours- Final report to follow
02/05/25 03:52 Blood/Venous Blood Culture - Preliminary
No Growth in 24 hours- Final report to follow
--- NOTE | 2025-02-06 07:47 | CON.ORTHO ---
Consultation
-
Date/Time Consultation Performed: 02/06/2025 745 AM
Consultation - Orthopedics
History
HPI: 79-year-old male history of recent unicompartmental total knee arthroplasty in August subsequent infection complications and revision total knee arthroplasty presented to the emergency department from rehab facility after routine blood work
showed worsening anemia. He was admitted to the hospital service. During his hospitalization he was found to be hypotensive transferred to the ICU started on Levophed. Orthopedics is consulted for evaluation of right knee. This morning patient
is reporting no pain in his right knee. Reports that he does have some soreness when ambulating his right knee but this is not worsened in any way recently. He has been working with physical therapy using a walker for ambulation. He does have a
chronic wound since his surgeries over the anterior aspect of his knee. He reports that he has wound care appointment on Friday. He has an appointment to see his orthopedic surgeon later this month.
Allergies / Home Medications
Past medical history: Hypertension, hyperlipidemia, coronary artery disease, depression, chronic kidney disease
Past surgical history: Unicompartmental total knee arthroplasty August, subsequent I&D and revision to total knee arthroplasty
Social history: , currently residing at rehab facility but typically lives at home with his
Family history: Not pertinent
Allergy/AdvReac Type Severity Reaction Status Date / Time
No Known Allergies Allergy Verified 02/04/25 18:08
�Medication �Instructions �Recorded
aspirin 81 mg tablet,delayed 81 mg PO DAILY 01/19/18
release
docosahexaenoic acid (dha)-epa 120 1 cap PO DAILY 01/19/18
mg-180 mg capsule
lisinopril 20 mg tablet (Prinivil) 20 mg PO DAILY 01/19/18
multivitamin 1 ea PO DAILY 01/19/18
simvastatin 20 mg tablet 20 mg PO DAILY 01/19/18
cephalexin 500 mg capsule 500 mg PO BID #14 caps 04/06/20
Vital Signs / Lab Results
Temp Pulse Resp BP Pulse Ox
96.5 F L 59 13 101/49 96
02/06/25 06:00 02/06/25 06:00 02/06/25 06:00 02/06/25 06:00 02/06/25 06:00
02/06/25 03:55
02/06/25 03:55
10 point review systems reviewed and negative unless otherwise stated
General: Conversant, nontoxic in appearance
Musculoskeletal right lower extremity
Approximately 6 x 4 cm wound noted over anterior aspect of knee. No significant akash-incisional erythema, no active drainage, there is some granular tissue noted in wound bed
No palpable knee effusion or significant palpable synovial warmth
Knee range of motion lacking a few degrees terminal extension about 90 degrees flexion in bed
No gross instability varus valgus stress
Positive EHL, FHL, ankle dorsi, plantarflexion
Brisk up refill distal
Diagnostic studies
X-rays of right knee show no gross subsidence of components total knee arthroplasty or significant AKASH implant lucency
Assessment / Plan
79-year-old male history of unicompartmental total knee arthroplasty subsequent infection conversion to total knee arthroplasty with chronic wound over anterior knee. From an orthopedic standpoint, it does not appear as though there is any role for
acute intervention of any kind. Will plan to reach out to his surgeon of record to let him know that he is in the hospital. He does have an appointment this week for continued wound care. Did have a discussion with him that he was told he could
be a candidate for a flap of some kind for the wound but he declined this as he does not wish to have any further surgeries. Clinically do not suspect acute periprosthetic joint infection that would be contributing to his recent hypotension
requiring pressor support.
Weightbearing as tolerated right lower extremity with walker
PT OT
Pain control
DVT prophylax
Medical management per primary team
Antibiotics per infectious disease
Dry dressing changes to wound right knee with close outpatient follow-up for wound care
Follow-up outpatient with Dr. Wagner as previously scheduled
Please reach out with any questions or concerns
--- NOTE | 2025-02-06 08:22 | W.PN.HOSP.TC ---
Today's Communication/Plan
-
stop ivf; off pressors
empiric Abx pending cultures; follow ID recs
PT/OT
tele transfer
Assessment / Plan
Assessment / Plan
Assessment:
Shock - unclear underlying etiology, possibly evolving sepsis given Hypothermia although not meeting sepsis criteria completely (normal WBC, no tachycardia or tachypnea)
- Rolo-Hugger for hypothermia
- now normotensive; off IVF and pressors
- ICU service consulted
- empiric Vanco/Cefepime, day 2; cultures so far negative
- ID following
Anemia, suspected chronic
- no records to compare
- no evidence of low B12, folate, or iron deficiency. no significant evidence of hemolysis. COOMB+ but could be after transfusion 24 hours prior
- occult blood negative; continue to test it
- s/p 1 unit PRBC: Hb is 7.7 most recently
- Hematology consult
MERI on suspected CKD 3b (Cr baseline 1.5)
Acute hyperkalemia
- continue IVF
- s/p Lokelma x 2
- hold FLORINDA
- 2 gram K diet
- follow BMP
- BS/SC protocol
HX of dysphagia
- ST eval - reg diet recommended
Essential HTN
Hx of CAD
HLD
- per [facility] records - BB/FLORINDA stopped - perhaps hypotension related. Statin stopped - unclear why.
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
Open R knee wound
- outpatient surgeon is Dr. Wagner
- patient is on chronic Minocycline/Levaquin for suppression
- Knee Xray: No radiographic evidence for complication of the right total knee arthroplasty.
- Ortho following: Dry dressing changes to wound right knee daily. No operative intervention. WBAT. PT/OT
DVT ppx: SC Heparin
Code: Full
Total Critical Care Time 41 minutes. I was immediately available to the patient and staff. I personally examined, reviewed labs, diagnostic images/reports, interpretations, treatment plans, discussed patient care with other providers and family
or caregivers (if patient is unable to make decisions), entered orders as appropriate and documented the medical record.
Dispo: Downgrade to Tele.
Anticipated Discharge: 24 - 48 hours
Subjective/Interval History
-
Date of Service: February 06, 2025
resting comfortably, no complaints
Objective Data
-
Labs:
Laboratory Results
02/05/25 02/06/25
22:03 03:55
WBC 5.6
Hgb 7.7 L 7.7 L
Hct 23.1 L 23.2 L
Plt Count 152
PT 14.1
INR 1.06
APTT 35.7 H
Sodium 137 138
Potassium 4.8 5.0
Chloride 116 H 117 H
Carbon Dioxide 19 L 20 L
BUN 54 H 53 H
Creatinine 1.6 H 1.6 H
Glucose 117 H 105 H
Calcium 7.3 L 7.5 L
Vital Signs:
Vital Signs
Temp Pulse Resp BP Pulse Ox
96.5 F L 59 13 101/49 96
02/06/25 06:00 02/06/25 06:00 02/06/25 06:00 02/06/25 06:00 02/06/25 06:00
I&O
02/05/25 02/06/25 02/07/25
06:59 06:59 06:59
Intake Total 250 / 250 2800 / 2800
Output Total 200 / 200 1700 / 1700
Balance 50 / 50 1100 / 1100
Physical Exam
-
General: No Apparent Distress
HEENT: Normocephalic
Respiratory: Negative Wheezes
Cardiac: Regular Rhythm and S1/S2
GI: Soft and Nontender
Genito-urinary: No Costovertebral Tender
Musculoskeletal: Other (R knee open wound - no erythema, some granulation tissue. no drainage)
Neuro: AO x 3
Hematologic / Lymphatic: No Lymphadenopathy
Psych: Calm
Data Reviewed
-
Critical Care Time (in minutes): 41
Labs: Labs Reviewed by me
--- NOTE | 2025-02-06 09:00 | W.PN.ID1 ---
Date of Service
Date of Service: February 06, 2025
Today's Communication
-Discontinue empiric Vanco, cefepime.
- Resume minocycline 100mg po bid and Levofloxacin 750mg po q48H, renally doses through 02/16/25.
Assessment / Plan
# s/p brief Shock - unclear source at this time
# Hypothermia
# MERI
# Acute on chronic anemia
# Recent early septic R partial knee replacement (MSSA, Pseudomonas, Klebsiella)
s/p 2 stage revision to full TKA end of November 2024, on minocycline and levofloxacin till February 16, 2025.
# Post-op chronic wound on right knee
- UA neg
-CXR neg
-blood cx's neg to date
- Discontinue empiric Vanco, cefepime.
- Resume minocycline 100mg po bid and Levofloxacin 750mg po q48H, renally doses through 02/16/25.
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
HTN
HLD
CAD
Depression
Right knee partial replacement 08/30/24 ([facility])
Septic R partial TKA s/p washout 09/28, cx MSSA, Pseudomonas, Klebsiella failed conservative management IV abx
(?2 stage) revision to full R TKA end of 11/2024, currently on minocycline and levofloxacin till mid-February 2025 (managed by W[facility])
Chronic post-op right knee wound
Subjective / Review of Systems
Feeling much improved. Eating breakfast. No complaints.
Vital Signs / Physical Exam
Vital Signs
Vital Signs
Temp Pulse Resp BP Pulse Ox
96.5 F L 59 13 101/49 96
02/06/25 06:00 02/06/25 06:00 02/06/25 06:00 02/06/25 06:00 02/06/25 06:00
Physical Exam
Constitutional: No Acute Distress and Comfortable
Cardiovascular: Regular Rate and S1/S2
Pulmonary: Clear
Gastrointestinal: Soft, Non Tender, Non Distended and Normal Bowel Sounds
Genito-Urinary: Negative CVA Tenderness
Musculoskeletal: Other (Right knee ROM intact)
Wound: Other (Anterior right knee wound dressing dry)
Neurological: AO x 3
Objective Data
Lab Data
Lab Results
02/06/25 03:55
02/06/25 03:55
PT 14.1 Sec (11.4-14.6) 02/05/25 22:03
INR 1.06 02/05/25 22:03
APTT 35.7 Sec (23.4-35.0) H 02/05/25 22:03
Estimated Creat Clear 39 ml/min 02/06/25 03:55
Total Bilirubin 0.2 mg/dl (0.2-1.3) 02/04/25 18:15
AST 21 U/L (17-59) 02/04/25 18:15
ALT 14 U/L (0-50) 02/04/25 18:15
Alkaline Phosphatase 171 U/L (38-126) H 02/04/25 18:15
Most recent labs reviewed.
Micro Results:
02/05/25 03:52 Blood Culture - Preliminary
Blood/Venous No Growth in 24 hours- Final report to follow
02/05/25 03:52 Blood Culture - Preliminary
Blood/Venous No Growth in 24 hours- Final report to follow
02/05/25 05:58 MRSA Screen - Pending
Nose
02/05/25 CXR: No acute cardiopulmonary process.
02/05/25 R knee XRAY: No radiographic evidence for complication of the right total knee arthroplasty.
Care Review
Plan reviewed with: Physician (Dr. Teressa Cheng)
[2025-02-06] MEDS: PROTONIX IV 40 MG IV (09:55)
[2025-02-06] MEDS: NSS (PRESERVATIVE FREE) 10 ML IV (09:55)
[2025-02-06] MEDS: LIPITOR 10 MG PO (09:56)
[2025-02-06] MEDS: HEPARIN 5000 UNITS SC ×2 (09:56→20:19)
[2025-02-06] MEDS: MINOCIN 100 MG PO ×2 (10:20→20:14)
[2025-02-06] MEDS: LEVAQUIN 750 MG PO (10:20)
--- NOTE | 2025-02-06 11:40 | PTCARENOTE ---
Warmer back on:
SB 49-50; Axillary temp 96.9; Rectal temp 95.9 Warmer on low temp settings turned back on will continue to monitor
[2025-02-06] MEDS: NSS IV (12:03)
--- NOTE | 2025-02-06 13:09 | CON.ONC ---
Consultation
-
Date Consultation Requested: 02/05/25
Date Consultation Performed: 02/06/25
Requesting Provider: Dr. Cheng
Performing Provider: Dr. Rice
Reason for Consultation: anemia
Impression
Impression
sepsis - unclear etiology
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
anemia
positive NOE
CKD
CAD
Plan
Plan
1. Anemia - The etiology of this patient's anemia is unclear. He is borderline microcytosis, raising concern for possible component of iron deficiency. Will check iron studies w/ ferritin; though, evaluation of iron stores, now following transfusion
may or may not demonstrate true iron status. In addition, his ongoing infection/ inflammation may impact ferritin result as an acute phase reactant. Check B12/ folic acid levels. A component of CKD may be affecting erythropoiesis, impacting
hemoglobin. Furthermore, his chronic knee infection/ antibiotic therapy may be contributing to anemia of inflammation/infection. A NOE was evaluated - though, this was checked following transfusion of PRBCs, which could have impacted the result.
Reticulocyte count was low normal, lending against significant hemolysis. LDH was normal as was total bilirubin. Haptoglobin is pending.
Would continue to follow CBC.
Will continue to follow with you.
Patient History
History of Present Illness
79y/o male seen in hematology consultation regarding anemia.
The patient presented to the [facility] ER on 02/04 due to abnormal outpt labs demonstrating anemia w/ hemoglobin of 7.1g/dl. His prior hemoglobin on 02/02 was 7.5g/dl, and on 01/28 it was 8.7g/dl.
He has a complex history regarding right knee replacement, which apparent,y resulted in prolonged hospitalization due to infection, resulting in revision surgery in November. He remains on chronic antibiotic therapy - minocyline and IV levofloxacin.
Shortly after presentation to the ER, he developed hypotension, resulting in admission to ICU for sepsis. He is now off pressors, and doing better this am.
W/u for anemia reveals normal to low reticulocyte count of 0.6%. A ONE was performed and was positive w/ 3+ IgG, negative complement. This NOE was performed o 02/05 after transfusion of PRBCs. MCV on CBCs in hospital has been borderline - low 80s and
RDW has been high. Chemistry does reveal CKD w/ creatinine around 1.6. This has remained stable. Total bilirubin on 02/04 was normal.
Clinically, he feels decent today. Denies SOB at rest or chest pain. No fevers or chills. No abdominal pain or fullness.
Past-Medical/Surgical History
PMH:
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
CKD
HTN
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
dysphagia
ambulatory dysfunction
hyperlipidemia
CAD without angina,
PSH:
Right knee prostheses status post revision
Social History
Tobacco: Non-smoker
Alcohol: None
Family History
Family History: Not pertinent
Allergies: NKDA
Patient Medication
Active Medications
Generic Name Dose Route Start Last Admin
Trade Name Freq PRN Reason Stop Dose Admin
Acetaminophen 650 mg 02/05/25 04:40
Acetaminophen 325 Mg Tablet PO 03/05/25 04:39
Q6HPRN PRN
mild pain/ fever>100.5F
Atorvastatin Calcium 10 mg 02/05/25 08:00 02/06/25 09:56
Atorvastatin (Lipitor) 10 Mg Tablet PO 03/05/25 07:59 10 mg
DAILY JUSTYN Administration
Bisacodyl 10 mg 02/05/25 04:40
Bisacodyl 10 Mg Rectal Suppository RECTAL 03/05/25 04:39
DAILYPRN PRN
constipation
Heparin Sodium 5,000 units 02/05/25 20:00 02/06/25 09:56
Heparin 5,000 Units/Ml 1 Ml Vial SC 03/05/25 19:59 5,000 units
Q12 JUSTYN Administration
Hydralazine HCl 5 mg 02/05/25 04:40
Hydralazine 20 Mg/Ml Vial IV 03/05/25 04:39
On Hold: 02/05/25 09:42 Q6HPRN PRN
for SBP > 170
Levofloxacin 750 mg 02/06/25 10:00 02/06/25 10:20
Levofloxacin 750 Mg Tablet PO 750 mg
Q48H JUSTYN Administration
Magnesium Hydroxide 30 ml 02/05/25 04:40
Milk Of Magnesia 30 Ml Cup PO 03/05/25 04:39
HSPRN PRN
constipation
Metoprolol Succinate 25 mg 02/05/25 08:00 02/05/25 09:51
Metoprolol 25 Mg Extended Release Tablet PO 03/05/25 07:59 Not Given
On Hold: 02/05/25 09:42 DAILY JUSTYN
Minocycline HCl 100 mg 02/06/25 09:00 02/06/25 10:20
Minocycline 50 Mg Capsule PO 100 mg
Q12 JUSTYN Administration
Pantoprazole Sodium 40 mg 02/05/25 08:00 02/06/25 09:55
Pantoprazole Sodium 40 Mg/10 Ml Vial IV 03/05/25 07:59 40 mg
DAILY JUSTYN Administration
Sodium Chloride 10 ml 02/05/25 08:00 02/06/25 09:55
Sodium Chloride 0.9% (Preservative Free) 10 Ml Vial IV 03/05/25 07:59 10 ml
DAILY JUSTYN Administration
Sodium Chloride 0 flush 02/05/25 05:00
Sodium Chloride 0.9% (Flush) Syringe IV 03/05/25 04:59
PER PROTOCOL JUSTYN
Sterile Water 10 ml 02/05/25 06:00 02/06/25 05:48
Sterile Water For Injection 10 Ml Vial IV 03/05/25 05:59 10 ml
Q12@0600,1800 JUSTYN Administration
Review of Systems
-
A ROS was performed w/pertinent findings as per HPI.
Physical Exam
-
General: Well Developed and No Apparent Distress
HEENT: Negative Jaundice
Cardiology: Normal Sinus Rhythm
Pulmonary: Clear
GI: Soft
Extremities: No C/C/E
Neurology: Non Focal
Labs
Lab Results
WBC 5.6 10^3/uL (4.8-10.8) 02/06/25 03:55
RBC 2.86 10^6/uL (4.70-6.10) L 02/06/25 03:55
Hgb 7.7 g/dL (13.0-18.0) L 02/06/25 03:55
Hct 23.2 % (39.0-52.0) L 02/06/25 03:55
MCV 81.1 fL (80.0-94.0) 02/06/25 03:55
MCH 26.9 pg (27.0-31.0) L 02/06/25 03:55
MCHC 33.2 g/dL (33.0-37.0) 02/06/25 03:55
RDW 18.7 % (11.5-14.5) H 02/06/25 03:55
Plt Count 152 10^3/uL (130-400) 02/06/25 03:55
MPV 11.8 fL (7.4-10.4) H 02/06/25 03:55
Abs Immat Gran (auto) 0.1 10^3/uL (0-0.05) H 02/04/25 18:15
Absolute Neuts (auto) 6.6 10^3/uL (1.4-6.5) H 02/04/25 18:15
Absolute Lymphs (auto) 2.0 10^3/uL (1.2-3.4) 02/04/25 18:15
Absolute Monos (auto) 0.9 10^3/uL (0.1-0.6) H 02/04/25 18:15
Absolute Eos (auto) 0.3 10^3/uL (0-0.7) 02/04/25 18:15
Absolute Basos (auto) 0.0 10^3/uL (0-0.2) 02/04/25 18:15
Immature Gran % 0.5 % (0-0.5) 02/04/25 18:15
Neutrophils % 66.7 % (42.2-75.2) 02/04/25 18:15
Lymphocytes % 20.4 % (20.5-51.1) L 02/04/25 18:15
Monocytes % 8.9 % (1.7-9.3) 02/04/25 18:15
Eosinophils % 3.3 % (0-6) 02/04/25 18:15
Basophils % 0.2 % (0-2) 02/04/25 18:15
Creatinine 1.6 mg/dL (0.7-1.3) H 02/06/25 03:55
Vital Signs
Vital Signs
Temp Pulse Resp BP Pulse Ox
95.9 F L 73 19 155/83 96
02/06/25 12:00 02/06/25 12:00 02/06/25 12:00 02/06/25 12:00 02/06/25 06:00
--- NOTE | 2025-02-06 14:56 | PTCARENOTE ---
- Transfer transfer to room 318 bed 1 via w/c Report given prior to transfer
- At time of transfer pt AAO 3 Denies pain
-SR 60's Rectal Temp 95.9 Require Rolo zelalem Nursing staff made aware
-Abdomen soft non-tender
-Voiding in a urinal clear yellow
-Patient is present at time of transfer
[2025-02-06 15:20] LABS: Ferritin 190.0 ng/ml (17.9-464.0)
[2025-02-06 15:35] LABS: Vitamin B12 520 pg/ml (239-931)
[2025-02-06 16:22] LABS: Iron 90 ug/dl (49-181)
[2025-02-06 16:41] LABS: Total Iron Binding Capacity 161 ug/dl (261-462)
--- NOTE | 2025-02-06 17:38 | PTCARENOTE ---
received pt from ICU approx 1500 to 3W, room 318-1. VSS, temp 97.6, oriented to room, call melton within reach, bed in lowest position, fall risk bracelet placed. No c/o pain, per patient. Rolo Hugger in room, to be utilized for temp under 97
[2025-02-07] MEDS: TYLENOL 650 MG PO (01:50)
[2025-02-07 03:00] VITALS: BP 134/67
[2025-02-07 03:22] VITALS: BMI 24.3
--- NOTE | 2025-02-07 06:23 | PTCARENOTE ---
Oral care was not performed on patient because he stated that it was his preference to brush his teeth in the morning.
[2025-02-07 07:30] VITALS: BP 112/68
--- NOTE | 2025-02-07 07:38 | W.PN.ONC2 ---
Today's Communication / Plan
-
f/u haptoglobin
follow CBC
Impression
Impression
sepsis/-unclear source
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
anemia -1U PRBC during hospitalization
positive NOE following PRBC
CKD
CAD
Plan
Plan
1. Anemia - The etiology of this patient's anemia is unclear. He is borderline microcytosis
-A component of CKD may be affecting erythropoiesis, impacting hemoglobin
-chronic knee infection/ antibiotic therapy may be contributing to anemia of inflammation/infection.
-A NOE was evaluated - though, this was checked following transfusion of PRBCs, which could have impacted the result. Reticulocyte count was low normal, lending against significant hemolysis. LDH was normal as was total bilirubin. Haptoglobin is
pending.
-no role for parenteral iron with ferritin >100, IS 55%
-no B12 or folate deficiency
Would continue to follow CBC.
Will continue to follow with you.
Subjective/Objective
Subjective
no new complaints
afebrile, no hypoxia
Vital Signs:
Vital Signs
Temp Pulse Resp BP Pulse Ox
97.8 F 100 16 112/68 100
02/07/25 07:30 02/07/25 07:30 02/07/25 07:30 02/07/25 07:30 02/07/25 07:30
Lab Results:
Laboratory Data
WBC 5.6 10^3/uL (4.8-10.8) 02/06/25 03:55
Hgb 7.7 g/dL (13.0-18.0) L 02/06/25 03:55
Plt Count 152 10^3/uL (130-400) 02/06/25 03:55
PT 14.1 Sec (11.4-14.6) 02/05/25 22:03
INR 1.06 02/05/25 22:03
APTT 35.7 Sec (23.4-35.0) H 02/05/25 22:03
eGFR 43.02 02/06/25 03:55
Physical Exam
HEENT: Moist Mucous Membranes; No Jaundice
Pulmonary: Other (unlabored)
GI: Soft
Extremities: Pulses Present
[2025-02-07] MEDS: MINOCIN 100 MG PO ×2 (07:43→19:48)
[2025-02-07] MEDS: LIPITOR 10 MG PO (07:44)
[2025-02-07] MEDS: PROTONIX IV 40 MG IV (07:44)
[2025-02-07] MEDS: HEPARIN 5000 UNITS SC ×2 (07:44→19:47)
[2025-02-07] MEDS: NSS (PRESERVATIVE FREE) 10 ML IV (07:44)
[2025-02-07 08:04] LABS: Hematocrit 27.2 % (39.0-52.0); Hemoglobin 8.8 g/dL (13.0-18.0); Mean Corp Hgb Conc. 32.4 g/dL (33.0-37.0); Mean Corpuscular Volume 82.7 fL (80.0-94.0); Platelet Count 156 10^3/uL (130-400); Red Cell Dist. Width 18.9 % (11.5-14.5)
[2025-02-07 08:32] LABS: Blood Urea Nitrogen 41 mg/dl (9-20); Calcium 8.4 mg/dl (8.4-10.2); Carbon Dioxide 21 mmol/L (22-30); Chloride 115 mmol/L (98-107); Estimated Creatinine Clearance 44 ml/min; Glucose 65 mg/dl (70-99); Potassium 5.2 mmol/L (3.5-5.1); Sodium 139 mmol/L (135-145); eGFR 50.49
--- NOTE | 2025-02-07 08:55 | WOUNDNOTE ---
WOC RN NOTE: WOC RN consult ordered for right knee prosthetic open wound. Ortho assessed patient on 02/06 and orders were added by Dr. Cheng. TT Dr. Flores and consult was cancelled.
[2025-02-07] MEDS: LOKELMA 5 GRAM PO (10:28)
[2025-02-07 10:57] LABS: LDH 167 U/L (120-246); Potassium 5.2 mmol/L (3.5-5.1)
--- NOTE | 2025-02-07 11:10 | CM ---
Addendum entered by Gabbi Mccall 02/07/25 16:38:
per hospitalist discharge held until tomorrow to [facility]
notified [facility] liaison - she requested 11am transport which was set up
Covid negative
PLAN: [facility] 02/08
report #: [id number]
fax #: [phone]
transportation forms on chart, 11AM set
Addendum entered by Gabbi Mccall 02/07/25 11:51:
Spoke with Thania at [facility] [id number]
auth approved for [facility]
Auth approval #: [id number]
start date 02/07/25, NRD 02/11/25
call with updates to
AMBULANCE AUTH #: [id number]
Auth information given to Gill at [facility]
IMM explained & signed
COVID to be completed
PLAN: [facility]
report #: [phone]
fax #: [phone]
transportation forms on chart
Original Note:
Met with patient at bedside
per UR LOC change to IP on 02/05, IMM in chart & signed
spoke with Gill liaison at [facility]
Will need authorization prior to returning to SNF
[facility]
Dr. Roman Boykin
Patient will need COVID test-tt hospitalist
PLAN: [facility]
report #: [id number]
fax #: [phone]
transportation forms on chart
[2025-02-07 11:13] VITALS: BP 130/62
[2025-02-07 12:29] LABS: COVID-19 Antigen Negative (Negative)
--- NOTE | 2025-02-07 12:34 | W.PN.HOSP.TC ---
Today's Communication/Plan
-
check TSH if WNL - D/C
Assessment / Plan
Assessment / Plan
79yo M with PMHx of R knee replacement complicated later with septic arthritis s/p revision on minocycline and levophloxacine till mid managed by [facility] ID, CAD, HTN sent to ER with worsening anemia. found hypotensive in ED thought
2/2 new sepsis, however rapidly improved, so ID discontinued broad spectrum Abx and advised to cont Minocycline and Levophloxacin till 02/16/25 as previously planned. Patient with chronic anemia s/p 1 unit PRBC in ED, FOBT neg, however NOE positive
(done after blood transfusion, so unreliable with normal LDH. Hematology follwoed, advised hatoglobin, which still pending. Hgb stable, patient without new complains and stable to return to [facility] for further outpatient f/u by trust and estates attorney and
established specialists in [facility]
A/P:
#Suspected briefe shok on admission, unclear etiology
#Hypothermia
#episodic bradycardia
#Episodic hypoglycemia
Cannot exclude hypovolemia due to MERI on admission
resolved
ID folowed
TSH backordered
#Elevated alk.phos
2/2 joint infection
no abd pain noted
#Acute on chronic anemia
most likely 2/2 CKD as per hematology
FOllow as outpatient
Weekly CBC
#Hyperkalemia
Lasix stopped
Low potassium diet
weekly BMP
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
#Open R knee wound
outpatient surgeon is Dr. Wagner
patient is on chronic Minocycline/Levaquin for suppression
Knee Xray: No radiographic evidence for complication of the right total knee arthroplasty.
Ortho following: Dry dressing changes to wound right knee daily. No operative intervention. WBAT. PT/OT
#Essential HTN
#CAD, stable
#CKD stage 3a
#HLD
cont hoem meds
DVT ppx hep
Full code
I have spent at least 38min reviewing chart, test results, communication with consultants and providing direct patient care
Anticipated Discharge: Within 24 hours
Subjective/Interval History
-
Date of Service: February 07, 2025
Objective Data
-
Labs:
Laboratory Results
02/07/25 02/07/25
07:35 10:32
WBC 6.4
Hgb 8.8 L
Hct 27.2 L
Plt Count 156
Sodium 139
Potassium 5.2 H 5.2 H
Chloride 115 H
Carbon Dioxide 21 L
BUN 41 H
Creatinine 1.4 H
Glucose 65 L
Calcium 8.4
Vital Signs:
Vital Signs
Temp Pulse Resp BP Pulse Ox
97.6 F 58 16 130/62 100
02/07/25 11:13 02/07/25 11:13 02/07/25 11:13 02/07/25 11:13 02/07/25 09:55
I&O
02/06/25 02/07/25 02/08/25
06:59 06:59 06:59
Intake Total 2800 / 2800 1440 / 1440
Output Total 1700 / 1700 1360 / 1360
Balance 1100 / 1100 80 / 80
Review of Systems
-
History Source: Patient
All other systems: Reviewed and negative
Physical Exam
-
General: No Apparent Distress
HEENT: Normocephalic
Respiratory: Clear to Auscultation
GI: Soft, Nontender and Nondistended
Rectal: Brown
Genito-urinary: No Costovertebral Tender
Musculoskeletal: No Clubbing, No Cyanosis and No Edema
Skin: Warm
Neuro: Awake, Alert, Oriented and AO x 3
Psych: Calm
[2025-02-07 15:00] VITALS: BP 126/77
--- NOTE | 2025-02-07 15:13 | W.DCSUMMARY ---
Discharge Summary
Discharge Data
Date of Admission: 02/07/25
Date of Discharge: 02/08/25
-
Pending Results: No
Hospital Course
79yo M with PMHx of R knee replacement complicated later with septic arthritis s/p revision on minocycline and levophloxacine till mid-Feb managed by [facility] ID, CAD, HTN sent to ER with worsening anemia. found hypotensive in ED thought
2/2 new sepsis, however rapidly improved, so ID discontinued broad spectrum Abx and advised to cont Minocycline and Levophloxacin till 02/16/25 as previously planned. Patient with chronic anemia s/p 1 unit PRBC in ED, FOBT neg, however NOE positive
(done after blood transfusion, so unreliable with normal LDH. Hematology follwoed, advised hatoglobin, which still pending. Hgb stable, patient without new complains and stable to return to [facility] for further outpatient f/u by fire regulator and
established specialists in [facility]. TSH is WNL. COrtisol 14.7, but not overtly in insufficiency range.
I have spent at least 38min reviewing chart, test results, communication with consultants and providing direct patient care
Patient was managed for:
#Suspected brief shock on admission, unclear etiology
#Hypothermia
#episodic bradycardia
#Episodic hypoglycemia
#Elevated alk.phos
#Acute on chronic anemia
#Hyperkalemia
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
#Open R knee wound
#Essential HTN
#CAD, stable
#CKD stage 3a
#HLD
Discharge Plan
-
Patient Disposition: Usp/SNF
Discharge Diagnosis/Procedures: anemia
Diet: Other diet
Additional Diets: Low potassium
Activity: As tolerated
Blood Work: BMP and CBC weekly starting 02/11/25
Wound Care: Dry dressing changes to wound right knee with close outpatient follow-up for wound care
Follow-up outpatient with Dr. Wagner as previously scheduled
Referrals:
Samuel Rice MD [Active, Hematology / Oncology] - in one to two weeks
Referral Note: for positive NOE followup
Blair Pinto DO [Family Provider, Internal Medicine]
Additional Discharge Medication Instructions: Continue Levofloxacin and Minocycline until 02/16/25
Prescriptions:
New
aspirin 81 mg Tablet,Chewable
81 mg PO DAILY Qty: 0 0RF
metoprolol succinate 25 mg Tablet Extended Release 24 Hr
25 mg PO DAILY Qty: 0 0RF
levofloxacin 750 mg Tablet
750 mg PO Q48H Qty: 0 0RF
Continued
acetaminophen 500 mg Tablet
1,000 mg PO BID
bisacodyl [Dulcolax (bisacodyl)] 10 mg Suppository
10 mg TN DAILY PRN (Reason: if no BM in 8 hr after MOM)
Fleet Enema 19-7 gram/118 mL Enema
118 ml TN DAILYPRN PRN (Reason: if no BM 8hr after dulcolax supp)
Santyl 250 unit/gram Ointment
1 applic TOPICAL DAILY
omega-3 fatty acids Capsule
2 cap PO HS
magnesium hydroxide [Milk of Magnesia] 400 mg/5 mL Suspension
30 ml PO DAILYPRN PRN (Reason: no BM x 2 days)
simvastatin 20 mg tablet
20 mg PO HS
omeprazole 20 mg capsule,delayed release(DR/EC)
20 mg PO DAILY
minocycline 100 mg tablet
100 mg PO BID
Rx Instructions:
right knee infection
mirtazapine 7.5 mg tablet
7.5 mg PO HS
Discontinued
lisinopril 10 mg Tablet
10 mg PO DAILY
Discharge Orders:
Discharge Patient (As Directed); Ordered 02/08/25
Ordered By: Braeden Thomas
Discharge Date and Time
Print Language: DJIBOUTIAN
[2025-02-07 19:19] VITALS: BP 132/76
[2025-02-07 23:00] VITALS: BP 123/60
[2025-02-08 03:00] VITALS: BP 135/74
--- NOTE | 2025-02-08 04:56 | PTCARENOTE ---
Pt had axillary temp of 96 at 3 am, rechecked at 3:25 with a rectal temp of 95.3. Rolo hugger placed per orders. HEATH Parsons notified. New orders received for AM labs. Temp recheck 1 hr later was 95.1. HEATH Griffin aware. Pt remains on Rolo
hugger.
[2025-02-08 07:30] VITALS: BP 104/82
[2025-02-08 08:12] LABS: Hematocrit 27.0 % (39.0-52.0); Hemoglobin 8.7 g/dL (13.0-18.0); Mean Corp Hgb Conc. 32.2 g/dL (33.0-37.0); Mean Corpuscular Volume 82.3 fL (80.0-94.0); Platelet Count 148 10^3/uL (130-400); Red Cell Dist. Width 19.2 % (11.5-14.5)
[2025-02-08] MEDS: LOW STRENGTH ASPIRIN 81 MG PO (08:45)
[2025-02-08] MEDS: PROTONIX 40 MG PO (08:45)
[2025-02-08] MEDS: MINOCIN 100 MG PO (08:45)
[2025-02-08] MEDS: HEPARIN 5000 UNITS SC (08:46)
[2025-02-08] MEDS: TOPROL XL 25 MG PO (08:46)
[2025-02-08] MEDS: LIPITOR 10 MG PO (08:46)
[2025-02-08] MEDS: NSS (PRESERVATIVE FREE) IV (08:47)
[2025-02-08 09:27] LABS: Blood Urea Nitrogen 34 mg/dl (9-20); Calcium 8.4 mg/dl (8.4-10.2); Carbon Dioxide 21 mmol/L (22-30); Chloride 114 mmol/L (98-107); Estimated Creatinine Clearance 44 ml/min; Glucose 53 mg/dl (70-99); Magnesium 1.5 mg/dl (1.6-2.3); Potassium 5.2 mmol/L (3.5-5.1); Sodium 139 mmol/L (135-145); eGFR 50.49
--- NOTE | 2025-02-08 09:40 | W.PN.ONC2 ---
Today's Communication / Plan
-
monitor CBC, transfuse prn
No further inpatient recommendations, hematology will sign off, please reach out with any questions or concerns.
Could consider OP follow up with hematology for MESFIN to treat AOCKD if Hgb remains <10 with ferritin >100, IS >20. I have added my office contact information if pt would like to pursue outpatient follow up after discharge
Impression
Impression
sepsis/-unclear source
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
anemia -1U PRBC during hospitalization
positive NOE following PRBC -normal haptoglobin so no evidence of hemolysis
CKD
CAD
Plan
Plan
1. Anemia
-A component of CKD may be affecting erythropoiesis, impacting hemoglobin
-chronic knee infection/ antibiotic therapy may be contributing to anemia of inflammation/infection.
-no evidence of hemolysis with normal haptoglobin -A NOE was evaluated - though, this was checked following transfusion of PRBCs, which could have impacted the result.
-no role for parenteral iron with ferritin >100, IS 55%
-no B12 or folate deficiency
-transfuse prn Hgb <7 or as needed for sxs anemia
Subjective/Objective
Subjective
no new complaints
Vital Signs:
Vital Signs
Temp Pulse Resp BP Pulse Ox
97.7 F 94 12 104/82 100
02/08/25 08:53 02/08/25 08:46 02/08/25 07:30 02/08/25 08:46 02/08/25 07:30
Lab Results:
Laboratory Data
WBC 6.1 10^3/uL (4.8-10.8) 02/08/25 07:43
Hgb 8.7 g/dL (13.0-18.0) L 02/08/25 07:43
Plt Count 148 10^3/uL (130-400) 02/08/25 07:43
PT 14.1 Sec (11.4-14.6) 02/05/25 22:03
INR 1.06 02/05/25 22:03
APTT 35.7 Sec (23.4-35.0) H 02/05/25 22:03
eGFR 50.49 02/08/25 07:43
Physical Exam
HEENT: Moist Mucous Membranes; No Jaundice
Pulmonary: Other (unlabored)
GI: Soft
Extremities: Pulses Present
--- NOTE | 2025-02-08 09:51 | CM ---
Patient transport arranged now for [facility] at 2pm today
[facility] liaison notified
PLAN: [facility] 02/08
report #: [phone]
fax #: [phone]
transportation forms on chart
[2025-02-08] MEDS: MAGNESIUM SULFATE 50 IV (10:00)
[2025-02-08 10:03] LABS: Glucose - Point of Care 119 mg/dl (70-99)
[2025-02-08] MEDS: LEVAQUIN 750 MG PO (10:04)
[2025-02-08 10:16] LABS: Cortisol, Random 14.4 ug/dl
--- NOTE | 2025-02-08 10:49 | W.PN.HOSP.TC ---
Today's Communication/Plan
-
dc
Assessment / Plan
Assessment / Plan
79yo M with PMHx of R knee replacement complicated later with septic arthritis s/p revision on minocycline and levophloxacine till mid-Feb managed by [facility] ID, CAD, HTN sent to ER with worsening anemia. found hypotensive in ED thought
2/2 new sepsis, however rapidly improved, so ID discontinued broad spectrum Abx and advised to cont Minocycline and Levophloxacin till 02/16/25 as previously planned. Patient with chronic anemia s/p 1 unit PRBC in ED, FOBT neg, however NOE positive
(done after blood transfusion, so unreliable with normal LDH. Hematology follwoed, advised hatoglobin, which still pending. Hgb stable, patient without new complains and stable to return to [facility] for further outpatient f/u by principal product manager and
established specialists in [facility]
A/P:
#Suspected briefe shok on admission, unclear etiology
#Hypothermia
#episodic bradycardia
#Episodic hypoglycemia
Cannot exclude hypovolemia due to MERI on admission
resolved
ID folowed
TSH WNL, cortisol 14.7 - no overt signs of generalized weakness to justify franc adrenal insufficiency
Patient clinically not weak, not lethargic.
#Elevated alk.phos
2/2 joint infection
no abd pain noted
#Acute on chronic anemia
most likely 2/2 CKD as per hematology
FOllow as outpatient
Weekly CBC
#Hyperkalemia
Lasix stopped
Low potassium diet
weekly BMP
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
#Open R knee wound
outpatient surgeon is Dr. Wagner
patient is on chronic Minocycline/Levaquin for suppression
Knee Xray: No radiographic evidence for complication of the right total knee arthroplasty.
Ortho following: Dry dressing changes to wound right knee daily. No operative intervention. WBAT. PT/OT
#Essential HTN
#CAD, stable
#CKD stage 3a
#HLD
cont hoem meds
DVT ppx hep
Full code
I have spent at least 38min reviewing chart, test results, communication with consultants and providing direct patient care
Anticipated Discharge: Today
Subjective/Interval History
-
Date of Service: February 08, 2025
Objective Data
-
Labs:
Laboratory Results
02/08/25
07:43
WBC 6.1
Hgb 8.7 L
Hct 27.0 L
Plt Count 148
Sodium 139
Potassium 5.2 H
Chloride 114 H
Carbon Dioxide 21 L
BUN 34 H
Creatinine 1.4 H
Glucose 53 L*
Calcium 8.4
Vital Signs:
Vital Signs
Temp Pulse Resp BP Pulse Ox
97.7 F 94 12 104/82 100
02/08/25 08:53 02/08/25 08:46 02/08/25 07:30 02/08/25 08:46 02/08/25 07:30
I&O
02/07/25 02/08/25 02/09/25
06:59 06:59 06:59
Intake Total 1440 / 1440 900 / 900 480 / 480
Output Total 1360 / 1360 1200 / 1200 825 / 825
Balance 80 / 80 -300 / -300 -345 / -345
Review of Systems
-
History Source: Patient
All other systems: Reviewed and negative
Physical Exam
-
General: No Apparent Distress
HEENT: Normocephalic
Cardiac: Regular Rhythm
GI: Soft, Nontender and Nondistended
Musculoskeletal: No Clubbing, No Cyanosis and No Edema
Skin: Warm
Neuro: Awake, Alert, Oriented and AO x 3
Psych: Calm
[2025-02-08 11:00] VITALS: BP 126/58
--- NOTE | 2025-02-08 12:38 | PN.CDI ---
Addendum entered and electronically signed by Braeden Thomas MD 02/09/25 13:07:
No change to be done
Original Note:
CDI
- -
CDI:
Physician Documentation Request
Admit Date: 02/04/25 23:51
Dear Doctor Martha,
Please review the following and provide your response in the progress notes.
Clinical Indicators:
Pt admitted with MERI /Shock /Hypovolemia
Documented per [facility] Work[facility] consult/note 02/06, 'MERI present, unknown baseline-could be ATN, dehydration given ^NaHistory of CKD...'
Progress note 02/06,' MERI on suspected CKD 3b (Cr baseline 1.5)...'
02/04/25 02/05/25
18:15 08:51
Creatinine 2.2 H
Urine Creatinine 45.900
Urine Sodium 88
Please update the status of ATN documented in plans examiner notes :
ATN- resolved /A valid diagnosis
ATN -ruled out
Other ( please specify)
Use of terms such as suspected, likely, concern for, or probable (associated with a specific diagnosis that is being evaluated, monitored, or treated as if it exists) are acceptable and can be coded in the inpatient setting, when documented at the
time of discharge.
Thank you,
Nany Harp RN
CDI Specialist
[place] [facility]
Please use your independent medical judgment in providing your response.
*Source: Kidney Disease: Improving Global Outcomes (KDIGO) 2012
== END 2025-02-08 14:35 | DRG 682 ==
LOC: 3 WEST ACU 04:37
PROVIDERS: Emergency Medicine; Internal Medicine; Nurse Practitioner Family; ADMITTING PHYSICIAN Internal Medicine; ATTENDING PHYSICIAN Internal Medicine; CONSULT PHYSICIAN Internal Medicine Infectious Disease; CONSULT PHYSICIAN Orthopaedic Surgery; EMERGENCY PHYSICIAN Emergency Medicine; FAMILY PHYSICIAN Internal Medicine; OTHER PHYSICIAN Internal Medicine; OTHER PHYSICIAN Internal Medicine Hematology & Oncology
PROC: 30233N1 Transfusion of Nonautologous Red Blood Cells into Peripheral Vein, Percutaneous Approach (ICD-10-PCS; 2025-02-05)
DX: N17.9 Acute kidney failure, unspecified (principal); R57.1 Hypovolemic shock; M00.9 Pyogenic arthritis, unspecified; E87.5 Hyperkalemia; E78.00 Pure hypercholesterolemia, unspecified; I12.9 Hypertensive chronic kidney disease with stage 1 through stage 4 chronic kidney disease, or unspecified chronic kidney disease; R26.2 Difficulty in walking, not elsewhere classified; R13.10 Dysphagia, unspecified; F32.A Depression, unspecified; R68.0 Hypothermia, not associated with low environmental temperature; D63.8 Anemia in other chronic diseases classified elsewhere; N18.32 Chronic kidney disease, stage 3b; I25.10 Atherosclerotic heart disease of native coronary artery without angina pectoris; K21.9 Gastro-esophageal reflux disease without esophagitis; E16.2 Hypoglycemia, unspecified; T84.53XD Infection and inflammatory reaction due to internal right knee prosthesis, subsequent encounter; Y83.1 Surgical operation with implant of artificial internal device as the cause of abnormal reaction of the patient, or of later complication, without mention of misadventure at the time of the procedure; Z96.641 Presence of right artificial hip joint; Z79.2 Long term (current) use of antibiotics; Z11.52 Encounter for screening for COVID-19; Z79.82 Long term (current) use of aspirin
CPT/HCPCS: 36430; 71045; 73560; 80048; 80053; 80202; 81003; 82533; 82570; 82607; 82728; 82746; 82962; 83010; 83540; 83550; 83615; 83735; 84132; 84300; 84443; 85014; 85018; 85025; 85027; 85045; 85610; 85730; 86850; 86860; 86880; 86900; 86901; 86920; 87040; 87070; 87811; 92610; 93005; 93306; 96361; 96374; 96375; 97116; 97163; 97167; 99285; P9016